=== PATIENT | male | born 1975 | race Caucasian/White ===

== ENCOUNTER → 2017-02-17 | Day surgery (SDC) | payer MEDICARE, BC ==
[~2017-02-17] MED LIST: AMINOPHYLLINE; ATIVAN PO; AVAPRO75 MG PO; BENZONATATE PO; CELEXA; DESYREL50 MG PO; FLEXERIL10 MG PO; GARLIC TAB; HCTZ; HYDROCODON-ACE1 EAC5; HYDROCODON-ACE1 EAC5 PO; LAMOTRIGINE25 M1 PO; LORTAB 10/500 T1 TAB; LORTAB 7.5-5001 TAB; LOVENOX; MOBIC PO; NEURONTIN PO; NORCO 10/325 TA1 TAB; OXYCONTIN60 MG; PAMELOR25 M1 PO; PHENERGAN; PREDNISONE PO; SEROQUEL; SYNTHROID125 PO; TIZANIDINE HCL4 M1 PO; TOPROL XL; TRAZODONE HCL100 MG PO; UNK HTN MEDS; VENTOLIN HFA INH; VOLTAREN75 MG PO; ZANTAC; ZITHROMAX PO
--- NOTE | ~2017-02-17 | OR ---
Unit #: [id number] #: [id number] Patient: JOEY SPRAGUE [id number] [address] [address] [id number] MR#: [id number] NAME: JOEY SPRAGUE ROOM: Date of Procedure: 02/17/2017 Admission Date: 02/17/2017 Surgeon: Jose Reyes M.D. : 1975 Attending Physician: Jose Reyes M.D. Primary Care Physician: Vikash Bingham M.D. OPERATIVE REPORT PREOPERATIVE DIAGNOSES 1. Neck pain, cervical radiculopathy, cervical burst fracture, cervical disk herniation. 2. Back pain, compression fracture, degenerative disk disease, radiculopathy. POSTOPERATIVE DIAGNOSES 1. Neck pain, cervical radiculopathy, cervical burst fracture, cervical disk herniation. 2. Back pain, compression fracture, degenerative disk disease, radiculopathy. PROCEDURES PERFORMED 1. Lumbar epidural steroid injection with fluoroscopic guidance for needle localization. 2. Cervical epidural steroid injection with fluoroscopic guidance for needle localization. INDICATIONS FOR PROCEDURE The patient is a 41-year-old male with previously mentioned diagnosis. He is not a surgical candidate. He has done well with medical management and p.r.n. epidural steroid injections every 3 to 4 months. Last injections were completed 4 months ago and the patient did well just the last 2 to 3 weeks. Based on history, pathology, symptomatology, and treatment options, we are going to proceed with a repeat epidural steroid injection at cervical and lumbar level. DESCRIPTION OF PROCEDURE Procedure #1: The patient was placed in a seated position. Standard monitors were applied. Sterile prep and drape of the lumbar area was performed. The skin then at the L4 level was localized with 1% lidocaine. A long 18-gauge Watson Browntead needle was then advanced via loss of resistance technique and fluoroscopic guidance in toward the epidural space. The patient did not complain of pain or paresthesia during needle advancement. After confirming proper positioning with fluoroscopy and radiographic contrast, 80 mg of Depo-Medrol and 6 mL of 0.125% bupivacaine were deposited. The patient tolerated this part of procedure well. Procedure #2: Cervical epidural steroid injection with fluoroscopic guidance. A separate kit was used to sterilely prep and drape the patient's cervical spine. The skin at the C5-C6 level was localized with 1% lidocaine. An 18-gauge kwiry needle was then advanced via hanging Unit #: [id number] #: [id number] Patient: JOEY SPRAGUE drop technique and fluoroscopic guidance in toward the epidural space. After confirming proper positioning with fluoroscopy and radiographic contrast, a dose of 80 mg of Depo-Medrol and 2 mL of 0.25% bupivacaine were deposited. The patient tolerated the procedure otherwise well and was discharged to the recovery room in stable condition. Dictated by... Izabella Hooks/lai TD: 02/17/2017 12:26 JOB #: [id number] OPERATIVE REPORT Page 1 of 1 X Jose Reyes MD X PROCEDURE OPERATIVE NOTE
== END | disposition home or self-care (01) ==
LOC: CCSC 07:19
DX: M50.10 Cervical disc disorder with radiculopathy, unspecified cervical region (principal); M51.16 Intervertebral disc disorders with radiculopathy, lumbar region; S12.9XXA Fracture of neck, unspecified, initial encounter; S32.009A Unspecified fracture of unspecified lumbar vertebra, initial encounter for closed fracture; E66.01 Morbid (severe) obesity due to excess calories; I10 Essential (primary) hypertension; Z88.8 Allergy status to other drugs, medicaments and biological substances; Z79.891 Long term (current) use of opiate analgesic; Z79.899 Other long term (current) drug therapy; X58.XXXA Exposure to other specified factors, initial encounter
CPT/HCPCS: J1040; J2250